=== PATIENT | female | born 1975 | race Caucasian/White ===

== ENCOUNTER → 2017-04-11 | Outpatient (CLI) | payer BC | END | disposition home or self-care (01) | LOC: C.PAPS 16:46 | PROVIDERS: ATTEND Physician Assistant | DX: Z01.419 Encounter for gynecological examination (general) (routine) without abnormal findings (principal) ==

== ENCOUNTER → 2017-07-31 | Outpatient (CLI) | payer BC, OTHER | END | disposition home or self-care (01) | LOC: C.RDSM 19:07 | PROVIDERS: ATTEND Physical Medicine & Rehabilitation Sports Medicine | DX: M79.671 Pain in right foot (principal) ==

== ENCOUNTER → 2017-08-22 | Outpatient (CLI) | payer OTHER ==
--- NOTE | 2017-08-22 14:35 | DIAGNOSTIC IMAGING REPORT ---
SI JOINTS 3 OR MORE VIEWS CLINICAL HISTORY: CHRONIC LOW BACK PAIN W/ SCIATICA COMPARISON STUDY: No previous studies for comparison. FINDINGS: No fractures are visualized. There is no SI joint fusion. There are no erosive changes to indicate an inflammatory sacroiliitis. IMPRESSION: No conventional radiographic evidence of an inflammatory sacroiliitis Electronically signed by: Michel Wiggins M.D. 08/22/2017 2:34 PM Dictated Date/Time: 08/22/2017 2:34 PM
--- NOTE | 2017-08-22 14:37 | DIAGNOSTIC IMAGING REPORT ---
LUMBAR SPINE 5 VIEWS HISTORY: CHRONIC LOW BACK PAIN W/ SCIATICA COMPARISON: None. FINDINGS: There is no fracture. No subluxation. Disc spaces are preserved. IMPRESSION: Unremarkable lumbar spine by conventional radiographic technique. Electronically signed by: [place] M.D. 08/22/2017 2:35 PM Dictated Date/Time: 08/22/2017 2:34 PM
== END | disposition home or self-care (01) ==
LOC: C.RAD1850 14:18
PROVIDERS: ATTEND Internal Medicine
DX: M54.40 Lumbago with sciatica, unspecified side (principal)